=== PATIENT | male | born 2000 | race Caucasian/White ===

== ENCOUNTER 2022-01-21 10:32 | Emergency (ER) | payer OTHER, SELFPAY ==
[2022-01-21 10:43] VITALS: BP 133/76; PULSE 79; RESP 16; TEMP 36.2; O2SAT 99
--- NOTE | 2022-01-21 10:54 | ED.EAR ---
HPI - Ear Problem General Chief complaint: Ear Stated complaint: right ear pain Time Seen by Provider: 01/21/22 10:54 Source: patient Mode of arrival: ambulatory Limitations: no limitations History of Present Illness HPI Narrative: 21-year-old male presented for complaint of right ear pain for 3 days. Endorses ringing and states he cannot hear out of it. Endorses a small lump under the right ear. He denies associated sinus congestion, pressure, headache, dizziness, fevers or chills. Has not taken anything for symptoms. He endorses swimming about a week ago. MD Complaint: ear pain Related Data Home Medications Medication Instructions Recorded Confirmed hydroxyzine pamoate 25 mg capsule 1 cap PO DAILY 01/21/22 01/21/22 olanzapine 20 mg tablet 1 tablet PO DAILY 01/21/22 01/21/22 sertraline 100 mg tablet 1 tablet PO DAILY 01/21/22 01/21/22 Allergies Allergy/AdvReac Type Severity Reaction Status Date / Time No Known Allergies Allergy Mild Verified 01/21/22 10:41 Review of Systems Review of Systems: CONSTITUTIONAL: Denies malaise, chills, or fever. EYES: Denies visual changes, redness, or discharge. ENT: Denies rhinorrhea, congestion, sinus pain, and sore throat. Reports ear pain CARDIOVASCULAR: Denies chest pain, palpitations, or edema. RESPIRATORY: Denies cough or dyspnea. SKIN: Denies rash or itching. NEUROLOGIC: Denies headache. All systems reviewed & are unremarkable except as noted in HPI and below PMFSH Comments At time of signature, agree with nursing past medical, surgical, social and family history. There is no relevant family history pertinent to the presenting complaint Exam Narrative: GENERAL: Well-appearing EYES: conjunctivae clear ENT: Nares clear. Mucous membranes moist. Right TM unable to visualize due to canal swelling and purulent drainage; no tragal tenderness; Left TM pearly lock with normal light reflex; Oropharynx not erythematous without lesions. NECK: Supple. right superficial cervical lymphadenopathy CHEST: Clear to auscultation, breath sounds equal. HEART: Regular rate and rhythm. No murmur heard. SKIN: Warm, dry, no rash. NEURO: Alert and oriented x3. PSYCH: Normal mood and affect Course Course Emergency Course: Patient is aware of diagnosis, understands and agrees to treatment plan. Anticipatory guidance given. Patient agrees to follow-up as directed and is aware of reasons to seek care at the emergency department. Portions of this record may have been created with voice recognition software Level of Care: Express Care Visit Vital Signs Vital signs: Vital Signs Temperature 97.2 F L 01/21/22 10:43 Pulse Rate 79 01/21/22 10:43 Respiratory Rate 16 01/21/22 10:43 Blood Pressure 133/76 01/21/22 10:43 Pulse Oximetry 99 01/21/22 10:43 Oxygen Delivery Room Air 01/21/22 10:43 Temperature 97.2 F L 01/21/22 10:43 Pulse Rate 79 01/21/22 10:43 Respiratory Rate 16 01/21/22 10:43 Blood Pressure 133/76 01/21/22 10:43 Pulse Oximetry 99 01/21/22 10:43 Oxygen Delivery Room Air 01/21/22 10:43 Reviewed Medical Decision Making MDM Narrative Medical decision making narrative: Exam findings c/w EO; cortisporin gtt Rx. patient is non-toxic appearing and is in no distress. Patient is appropriate for outpatient treatment and follow-up. Differential Diagnosis Differential Diagnosis: Coronavirus, strep pharyngitis, allergic rhinitis, upper respiratory tract infection, sinusitis, rhinosinusitis, nasopharyngitis, viral pharyngitis, otitis media, otitis externa, eustachian tube dysfunction, foreign body, cerumen impaction. Vital Signs Vital Signs: Vital Signs Temperature 97.2 F L 01/21/22 10:43 Pulse Rate 79 01/21/22 10:43 Respiratory Rate 16 01/21/22 10:43 Blood Pressure 133/76 01/21/22 10:43 Pulse Oximetry 99 01/21/22 10:43 Oxygen Delivery Room Air 01/21/22 10:43 Temperature 97.2 F L 01/21/22 10:43 Pulse Rate 79 0
== END 2022-01-21 11:08 | disposition home or self-care (01) ==
PROVIDERS: Emergency Provider Nurse Practitioner Family
DX: H60.501 Unspecified acute noninfective otitis externa, right ear (principal)
CPT/HCPCS: 87491; 87591; 87661; 99213; G0463

== ENCOUNTER 2023-02-11 13:17 | Emergency (ER) | payer OTHER, SELFPAY ==
[2023-02-11 13:29] VITALS: BP 114/80; PULSE 83; RESP 16; TEMP 36.8; O2SAT 100
--- NOTE | 2023-02-11 13:54 | ED.BACK ---
HPI - Back Pain/Injury General Chief Complaint: Back Pain/Injury Stated Complaint: back pain Time Seen by Provider: 02/11/23 13:54 Source: patient Mode of arrival: ambulatory Limitations: no limitations History of Present Illness HPI Narrative: 22-year-old male presented for complaint of left lower back pain after heavy lifting yesterday. He states he lifted while he was working, then lifted a washer when he got home. Pain is worse today, worse when bending over. He denies numbness, tingling, weakness, or pain radiating down the legs. He took Tylenol yesterday. Related Data Home Medications Medication Instructions Recorded Confirmed olanzapine 20 mg tablet 1 tablet PO DAILY 01/21/22 02/11/23 sertraline 100 mg tablet 1 tablet PO DAILY 01/21/22 02/11/23 hydroxyzine pamoate 25 mg capsule 25 mg PO DAILY 02/11/23 02/11/23 Allergies Allergy/AdvReac Type Severity Reaction Status Date / Time No Known Allergies Allergy Mild Verified 02/11/23 13:32 Review of Systems Review of Systems: CONSTITUTIONAL: Denies body aches, fever, chills EYES: Denies visual changes CARDIOVASCULAR: Denies chest pain, palpitations, or edema. RESPIRATORY: Denies cough or dyspnea. GASTROINTESTINAL: Denies abdominal pain, nausea, vomiting, or diarrhea. SKIN: Denies rash, itching, or wounds. MUSCULOSKELETAL: reports back pain NEUROLOGIC: Denies headache, numbness, tingling, or weakness. All systems reviewed & are unremarkable except as noted in HPI and below [facility] Past Medical History Medical History (Updated 02/11/23 @ 14:04 by Marci Aguayo, ANNA) No pertinent past medical history Comments At time of signature, I have reviewed and agree with nursing past medical, surgical, social and family history unless otherwise noted. Please see nursing chart for further information. There is no relevant family history pertinent to the presenting complaint Exam Narrative: GENERAL: Appears in mild pain, in no acute distress. HEAD: Normocephalic, atraumatic. CHEST: Speaks in full sentences. No respiratory distress. HEART: Regular rate and rhythm. Normal and equal peripheral pulses. MUSC: Left lower back pain, nontender. Mild tenderness to left posterior hip. No Vertebral point tenderness. BLEs with normal strength and sensation, normal range of motion endorses pain with movement. No open wounds, or obvious deformity; alignment normal, pulse palpable and equal bilaterally, skin warm, dry, pink. Capillary refill less than 3 seconds. Gait steady. SKIN: Warm, dry, no rash. NEURO: Alert and oriented x3. Course Course Emergency Course: Patient is aware of diagnosis, understands and agrees to treatment plan. Anticipatory guidance given. Patient agrees to follow-up as directed and is aware of reasons to seek care at the emergency department. Portions of this record may have been created with voice recognition software Level of Care: Express Care Visit Vital Signs Vital signs: Vital Signs Temperature 98.3 F 02/11/23 13:29 Pulse Rate 83 02/11/23 13:29 Respiratory Rate 16 02/11/23 13:29 Blood Pressure 114/80 02/11/23 13:29 Pulse Oximetry 100 02/11/23 13:29 Oxygen Delivery Room Air 02/11/23 13:29 Temperature 98.3 F 02/11/23 13:29 Pulse Rate 83 02/11/23 13:29 Respiratory Rate 16 02/11/23 13:29 Blood Pressure 114/80 02/11/23 13:29 Pulse Oximetry 100 02/11/23 13:29 Oxygen Delivery Room Air 02/11/23 13:29 Reviewed MDM - Back Pain/Injury MDM Narrative Medical decision making narrative: Discussed physical exam findings. Advised supportive measures and s/s to go to the ER. Pt is stable and appropriate for outpt treatment and follow up with pcp. Differential Diagnosis Differential diagnosis: Likely lumbar radiculopathy, sciatica, strain of lumbar region, renal colic, pyelonephritis and discitis Discharge Plan Discharge Clinical Impression: Strain of lumbar region Patient Disposition:
== END 2023-02-11 14:05 | disposition home or self-care (01) ==
PROVIDERS: Emergency Provider Nurse Practitioner Family; PCP Family Medicine
DX: S39.012A Strain of muscle, fascia and tendon of lower back, initial encounter (principal); X50.0XXA Overexertion from strenuous movement or load, initial encounter; Y99.0 Civilian activity done for income or pay
CPT/HCPCS: 99213; G0463

== ENCOUNTER 2023-06-24 13:54 | Emergency (ER) | payer OTHER, SELFPAY ==
--- NOTE | ~2023-06-24 | XR_ITS ---
EXAMINATION: XR lumbar spine 2-3V DATE: 06/24/2023 14:50 INDICATION: Low back pain. TECHNIQUE: 3 views of lumbar spine were obtained. COMPARISON: Chest 2 views 01/29/2009 FINDINGS: There is 3 degrees dextrocurvature of lumbar spine. S1 is a transitional segment. Vertebral body heights are normal. Intervertebral disc heights are normal. The facet joints are normal. IMPRESSION: 1. No etiology for the patient's symptoms. Reviewed, dictated and finalized at location [facility]
[2023-06-24 14:01] VITALS: BP 125/71; PULSE 89; RESP 16; TEMP 36.6; O2SAT 100
--- NOTE | 2023-06-24 14:33 | ED.BACK ---
HPI - Back Pain/Injury General Chief Complaint: Back Pain/Injury Stated Complaint: Back Pain Time Seen by Provider: 06/24/23 14:34 Source: patient Mode of arrival: ambulatory Limitations: no limitations History of Present Illness HPI Narrative: 23-year-old male presented for complaint of mid lower back pain, onset 5 days. States he thinks he hurt it while working, doing heavy lifting. Rates 10/10. Worse when bending or walking. Took a dose of Tylenol. Denies pain radiating into the hips or legs, numbness, tingling, weakness of the lower extremities, or change in gait, saddle paresthesia or loss of bowel or bladder. Reports similar symptoms in January due to lifting at work. Related Data Home Medications Medication Instructions Recorded Confirmed olanzapine 20 mg tablet 1 tablet PO DAILY 01/21/22 06/24/23 sertraline 100 mg tablet 1 tablet PO DAILY 01/21/22 06/24/23 Allergies Allergy/AdvReac Type Severity Reaction Status Date / Time No Known Allergies Allergy Mild Verified 06/24/23 14:19 Review of Systems Review of Systems: CONSTITUTIONAL: Denies body aches, fever, chills EYES: Denies visual changes CARDIOVASCULAR: Denies chest pain, palpitations, or edema. RESPIRATORY: Denies cough or dyspnea. GASTROINTESTINAL: Denies abdominal pain, nausea, vomiting, or diarrhea. SKIN: Denies rash, itching, or wounds. MUSCULOSKELETAL: reports back pain NEUROLOGIC: Denies headache, numbness, tingling, or weakness. All systems reviewed & are unremarkable except as noted in HPI and below PMFSH Past Medical History Medical History No pertinent past medical history Comments At time of signature, I have reviewed and agree with nursing past medical, surgical, social and family history unless otherwise noted. Please see nursing chart for further information. There is no relevant family history pertinent to the presenting complaint Exam Narrative: GENERAL: appears in mild pain, in no acute distress. HEAD: Normocephalic, atraumatic. EYES: conjunctivae clear NECK: Supple. full ROM CHEST: Speaks in full sentences. No respiratory distress. HEART: Regular rate and rhythm. Normal and equal peripheral pulses. MUSC: No Vertebral point tenderness or step off. No lumbar paraspinal tenderness with palpation. BLEs with normal strength and sensation, normal range of motion; endorses pain to the low back with movement. No ecchymosis, No open wounds, or obvious deformity; alignment normal, pulse palpable and equal bilaterally, skin warm, dry, pink. Capillary refill less than 3 seconds. Gait steady, slow. SKIN: Warm, dry, no rash. NEURO: Alert and oriented x3. Course Course Emergency Course: Patient is aware of diagnosis, understands and agrees to treatment plan. Anticipatory guidance given. Patient agrees to follow-up as directed and is aware of reasons to seek care at the emergency department. Portions of this record may have been created with voice recognition software Level of Care: Express Care Visit Vital Signs Vital signs: Vital Signs Temperature 98 F 06/24/23 14:01 Pulse Rate 89 06/24/23 14:01 Respiratory Rate 16 06/24/23 14:01 Blood Pressure 125/71 06/24/23 14:01 Pulse Oximetry 100 06/24/23 14:01 Oxygen Delivery Room Air 06/24/23 14:01 Temperature 98 F 06/24/23 14:01 Pulse Rate 89 06/24/23 14:01 Respiratory Rate 16 06/24/23 14:01 Blood Pressure 125/71 06/24/23 14:01 Pulse Oximetry 100 06/24/23 14:01 Oxygen Delivery Room Air 06/24/23 14:01 Reviewed MDM - Back Pain/Injury MDM Narrative Medical decision making narrative: Xray reviewed with pt. Advised supportive measures and s/s to go to the ER. Pt is stable and appropriate for outpt treatment and follow up with pcp. Differential Diagnosis Differential diagnosis: Likely lumbar radiculopathy, sciatica, strain of lumbar region, renal colic, pyelonephritis and di
== END 2023-06-24 15:10 | disposition home or self-care (01) ==
PROVIDERS: Emergency Provider Nurse Practitioner Family
DX: S39.012A Strain of muscle, fascia and tendon of lower back, initial encounter (principal); X50.0XXA Overexertion from strenuous movement or load, initial encounter
CPT/HCPCS: 72100; 99213; G0463